=== PATIENT | male | born 1975 | race Caucasian/White ===

== ENCOUNTER 2016-07-10 16:32 | Emergency (ER) | payer SELFPAY ==
[2016-07-10] MEDS ORDERED: KETOROLAC 30 MG/ML VIAL ONE (22:11)
[2016-07-10] MEDS ORDERED: ONDANSETRON 4 MG VIAL ONE (22:11)
[2016-07-10] MEDS ORDERED: DIPHENHYDRAMINE 50 MG/ML VIAL ONE (22:11)
== END 2016-07-10 23:31 | disposition home or self-care (01) ==
LOC: ER 16:32
DX: J01.00 Acute maxillary sinusitis, unspecified (principal); K52.9 Noninfective gastroenteritis and colitis, unspecified; F17.210 Nicotine dependence, cigarettes, uncomplicated
CPT/HCPCS: 36415; 80053; 81003; 83690; 85025; 87804; 96374; 96375